=== PATIENT | female | born 2005 | race Caucasian/White ===

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

== ENCOUNTER 2023-02-18 20:02 | Emergency (ER) | payer OTHER ==
[~2023-02-18] VITALS: Ht 152.4 cm; Wt 89.8 kg
[2023-02-18 20:57] VITALS: BP 116/81
== END 2023-02-18 20:58 | disposition home or self-care (01) ==
LOC: ED 20:02
DX: F15.10 Other stimulant abuse, uncomplicated (principal)
CPT/HCPCS: 99283

== ENCOUNTER 2023-02-18 21:46 | Emergency (ER) | payer OTHER ==
[~2023-02-18] VITALS: Ht 162.6 cm; Wt 81.8 kg
--- OUTSIDE RECORDS SUMMARY | 2023-02-18 21:54 | XMS ---
PreManage Notification: LOWELL FUNEZ [employer] Events No recent Security Events currently on file CRITERIA MET - [facility] - 2 Visits in 30 Days CARE PROVIDERS There are no care providers on record at this time. José Antonio has no Care Guidelines for this patient. [facility] MO.) [facility] NOTE: Visits indicate total known visits. ED/C VISIT TRACKING (12 MO.) 02/18/2023 21:47 [facility] [place] TYPE: Emergency COMPLAINT: - MEDICAL CLEARANCE 02/18/2023 20:02 [facility] [place] TYPE: Emergency COMPLAINT: - DRUG ABUSE 12/07/2022 10:27 [facility] [place] TYPE: Emergency COMPLAINT: - L INDEX FINGER INJURY DIAGNOSES: - Exposure to other specified factors, initial encounter - Pain in left finger(s) - Unspecified sprain of left index finger, initial encounter INPATIENT VISIT TRACKING (12 MO.) No inpatient visits to display in this time frame [email or web address]
[2023-02-20 12:10] VITALS: BP 94/69
== END 2023-02-20 12:10 | disposition home or self-care (01) ==
LOC: ED 21:46
DX: R45.851 Suicidal ideations (principal); F15.10 Other stimulant abuse, uncomplicated; Z20.822 Contact with and (suspected) exposure to COVID-19
CPT/HCPCS: 36415; 80053; 81001; 84443; 84703; 85025; G0480; J1200; J1630; J2060; U0003